=== PATIENT | female | born 1985 | race Caucasian/White ===

== ENCOUNTER → 2021-01-28 15:47 | Outpatient (POV) | payer BC, SELFPAY | PROVIDERS: Visit Provider Dermatology | DX: Z00.00 Encounter for general adult medical examination without abnormal findings (principal) ==

== ENCOUNTER → 2021-05-06 06:47 | Outpatient (CLI) | payer BC, SELFPAY ==
--- NOTE | 2021-05-06 | CA_ITS ---
APPROVED REPORT Exam: Pharmacologic Technologist: Emily Randall, Ht: 5 ft 2 in Wt: 169 lbs BSA: 1.78 m2 HR: 105 bpm BP: 126/84 mmHg Medical History Medications: HCTZ,,,,, Stress Test Details Test: LEXISCAN HR Resting HR: 92 bpm Max Heart Rate (APMHR): 182.082538 bpm Max HR Achieved: 155 bpm Target HR (85% APMHR): 154.564710 bpm % of APMHR: 85.16 Recovery HR: 98 bpm BP Resting BP: 126/84 mmHg Max BP: 141/89 mmHg Recovery BP: 138.0/85.0 mmHg ECG Resting ECG: NSR, rightward axis Clinical Exercise duration: 04:00 min Highest Stage Achieved: Stress ECG Conclusion Symptoms: Mild chest tightness, mild stomach discomfort. Arrhythmias/Ectopy: Rare PVC. ST-T Changes: No significant changes. Conclusion: Unremarkable Lexiscan stress. Myoview images reported separately. Electronically signed by : Homero Zhang MD 05/06/2021 19:23:48
--- NOTE | 2021-05-06 07:15 | NM_ITS ---
APPROVED REPORT Exam: Nuclear Stress Test Indication: Chest pain, SOB, HTN, Family history Patient Location: Outpatient Stress Tech: Emily Brambila MI Tech:Eulalia Martini, ARRT, RT (R)(N) Ht: 5 ft 2 in Wt: 200 lbs Bra Size: 38D HR: 92 bpm BP: 126/84 mmHg BSA: 1.91 m2 BMI: 36.5 History: Chest pain, SOB, HTN, Family history Procedure: Patient received a 0.4 mg of intravenous Lexiscan, resting heart rate 92 bpm, resting blood pressure 126/84 mmHg, with Lexiscan maximum heart rate achived was 155 bpm which is Less than 85 % of the maximum predicted heart rate and blood pressure was 141/89 mmHg. With Lexiscan, patient denied any complaint of chest pain. Electrocardiogram Resting electrocardiogram shows sinus rhythm, with Lexiscan there is less than 1.[address] segment depression from the baseline EKG. The EKG portion of the Lexiscan is nondiagnostic. Cardiac Stress and Resting SPECT Images: Cardiac Stress and Resting SPECT images were obtained using technetium 99m Myoview 31.1 mCi stress and 10.36 mCi at rest. Gated SPECT analysis of segmental wall motion and calculation of ejection fraction also done. Cardiac stress and rest SPECT images were uniform myocardial activity without segmental perfusion abnormality, computer derived ejection fraction is 65% with no regional wall motion abnormality, right ventricle is normal size and contractility. Conclusion: 1. The EKG portion of the Lexiscan is nondiagnostic 2. No scintigraphic evidence of reversible ischemia seen, computer derived ejection fraction is 65% with no regional wall motion abnormality, right ventricle is normal size and contractility. 3. Normal Lexiscan Myoview study. Electronically signed by : Homero Zhang MD 05/06/2021 19:26:18
--- NOTE | 2021-05-06 08:42 | HMH.ITSHM ---
Current Home Medications as stated by this patient Vero Mcdonaldty or hospital sales representative. []HCTZ
== END ==
PROVIDERS: PCP Internal Medicine Adolescent Medicine; Visit Provider Nurse Practitioner Family
DX: R07.9 Chest pain, unspecified (principal); I10 Essential (primary) hypertension; Z82.49 Family history of ischemic heart disease and other diseases of the circulatory system
CPT/HCPCS: 78452; 93017; A9502; J2785

== ENCOUNTER 2023-11-23 07:45 | Outpatient (CLI) | payer BC, SELFPAY ==
--- NOTE | 2023-11-23 | US_ITS ---
FINAL REPORT TECHNIQUE: Sonographic images of the right upper quadrant were obtained. CLINICAL HISTORY: Recurrent vomiting. COMPARISON: None. FINDINGS: The pancreas is partially obscured.The liver has an unremarkable appearance.The gallbladder appears normal without evidence of gallstones.There is no evidence of biliary ductal dilatation.The common duct measures 3 mm. There is a right renal cyst measuring 11 mm. Right kidney is otherwise unremarkable. IMPRESSION: Right renal cyst. Otherwise, unremarkable right upper quadrant ultrasound. Reviewed, Interpreted and Dictated by Dudley Rodriguez III, MD Transcribed by Marah Hsu PA-C Authenticated and [facility]
== END 2023-11-23 23:59 | disposition home or self-care (01) ==
LOC: RAD 07:46
PROVIDERS: PCP Nurse Practitioner Family; Visit Provider Nurse Practitioner Family
DX: R11.10 Vomiting, unspecified (principal); N28.1 Cyst of kidney, acquired
CPT/HCPCS: 76705

== ENCOUNTER 2023-12-08 09:01 | Outpatient (CLI) | payer BC, SELFPAY ==
--- NOTE | 2023-12-08 09:04 | CT_ITS ---
PROCEDURE INFORMATION: Exam: CT Abdomen And Pelvis With Contrast Exam date and time: 12/08/2023 9:33 AM Age: 38 years old Clinical indication: Nausea and vomiting; Abdominal pain; Other: Non specific; Additional info: Recurrent vomitting nausea abd pain TECHNIQUE: Imaging protocol: Computed tomography of the abdomen and pelvis with contrast. Radiation optimization: All CT scans at this facility use at least one of these dose optimization techniques: automated exposure control; mA and/or kV adjustment per patient size (includes targeted exams where dose is matched to clinical indication); or iterative reconstruction. Contrast material: ISOVUE 370; Contrast volume: 75 ml; Contrast route: IV; COMPARISON: US ABDOMEN LIMITED 11/23/2023 7:44 AM FINDINGS: Liver: Normal. No mass. Gallbladder and biliary ducts: Normal. No calcified stones. No ductal dilation. Pancreas: Normal. No ductal dilation. Spleen: Normal. No splenomegaly. Adrenal glands: Normal. No mass. Kidneys and ureters: 14 mm nodule right kidney 25 Hounsfield units.. There is no evidence of renal or ureteral calcifications. Stomach and bowel: Unremarkable. No obstruction. No mucosal thickening. Appendix: Normal appendix Intraperitoneal space: 18 mm simple cyst anterior to the left lobe of the liver . No follow-up imaging recommended . Vasculature: Unremarkable. No abdominal aortic aneurysm. Lymph nodes: Unremarkable. No enlarged lymph nodes. Urinary bladder: Unremarkable as visualized. Reproductive: IUD in the uterus Bones/joints: Unremarkable. No acute fracture. Soft tissues: Unremarkable. IMPRESSION: 14 mm nodule right kidney 25 Hounsfield units.Recommend MR without and with contrast or CT without and with contrast. MR is preferred for masses under 1.5 cm. No bowel obstruction. COMMENTS: Consistent with the [place] [employer]'s Incidental Findings Committee white paper (J Am Siva Radiol 2018): Any incidental renal lesion less than 1 cm or classified as too small to characterize, or any incidental cystic renal lesion characterized as simple-appearing, is likely benign. No follow-up imaging is recommended for these lesions per consensus recommendations based on imaging criteria.
[2023-12-08] MEDS: SODIUM CHLORIDE 0.9% 10ML SYR (RAD ONLY) 10 ML IV (09:41)
[2023-12-08] MEDS: IOPAMIDOL-370 (76%);100ML BOTTLE 75 ML IV (09:41)
== END 2023-12-08 23:59 | disposition home or self-care (01) ==
LOC: RAD 09:02
PROVIDERS: PCP Nurse Practitioner Family; Visit Provider Nurse Practitioner Family
DX: R11.2 Nausea with vomiting, unspecified (principal); R10.10 Upper abdominal pain, unspecified
CPT/HCPCS: 74177; Q9967

== ENCOUNTER 2023-12-24 08:19 | Outpatient (CLI) | payer BC, SELFPAY ==
--- NOTE | 2023-12-24 08:24 | MR_ITS ---
FINAL REPORT CLINICAL HISTORY: KIDNEY MASS/FAMILY HX OF RENAL CANCER COMPARISON: None FINDINGS: Multiplanar MR imaging of the abdomen was performed without and with contrast. Images of the liver reveal no evidence of mass. There is no evidence of biliary ductal dilatation. The gallbladder has an unremarkable appearance. There is a well-circumscribed anterior left upper quadrant mass, measuring 15 mm in size, which does not enhance after contrast administration, likely a cyst. In the mid right kidney there is a 13 mm mass with no evidence of contrast-enhancement, consistent in appearance with a cyst. No abnormal fluid collection is seen. No abnormal contrast enhancement is seen on the postcontrast images. IMPRESSION: 13 mm mass in the mid right kidney, without evidence of contrast-enhancement, consistent in appearance with a cyst. Well-circumscribed anterior left upper quadrant mass, 15 mm in size, which does not enhance after contrast administration, likely a cyst. Reviewed, Interpreted and Dictated by Dudley Rodriguez III, MD Transcribed by Herminia Molina Authenticated and [facility]
[2023-12-24 08:54] LABS: Blood Urea Nitrogen 14 mg/dl (7-17); Estimated Glomerular Filt Rate 79 ml/min (>60); GFR (African American) 96 ML/MIN (>60)
[2023-12-24] MEDS: GADOTERIDOL INJ 20ML SYRINGE 16 ML IV (10:16)
[2023-12-24] MEDS: SODIUM CHLORIDE 0.9% 50ML BAG 25 ML IV (10:16)
[2023-12-24] MEDS: SODIUM CHLORIDE 0.9% 10ML SYR (RAD ONLY) 10 ML IV (10:16)
== END 2023-12-24 23:59 | disposition home or self-care (01) ==
PROVIDERS: PCP Nurse Practitioner Family; Visit Provider Nurse Practitioner Family
DX: N28.89 Other specified disorders of kidney and ureter (principal); Z80.51 Family history of malignant neoplasm of kidney
CPT/HCPCS: 36415; 74183; 82565; 84520; A9576

== ENCOUNTER 2024-01-28 10:30 | Outpatient (CLI) | payer BC, SELFPAY ==
--- NOTE | 2024-01-28 10:36 | MM_ITS ---
PROCEDURE INFORMATION: Exam: MG Bilateral Screening 3D Mammography Exam date and time: 01/28/2024 10:19 AM Age: 38 years old Clinical indication: Screening examination TECHNIQUE: Imaging protocol: Bilateral Screening tomosynthesis and 2D mammography including computer-aided detection (CAD) when performed. COMPARISON: No relevant prior studies available. FINDINGS: MAMMOGRAPHY: Breast composition: The breasts are heterogeneously dense, which may obscure small masses. Mass: 0.3 cm questioned mass left breast roughly 3 o'clock middle to posterior depth. Architectural distortion: None. Calcifications: No suspicious calcifications. Asymmetric density: None. Skin thickening: None. Axillary adenopathy: None. IMPRESSION: Questioned left breast mass.Recommend left breast diagnostic mammogram including spot compression views of the left breast in the CC and MLO projections, a full 90 degree lateral view, and left breast ultrasound for further evaluation. ASSESSMENT: BI-RADS Category 0: Incomplete- Need Additional Imaging Evaluation.
== END 2024-01-28 23:59 | disposition home or self-care (01) ==
LOC: RAD 10:31
PROVIDERS: PCP Nurse Practitioner Family; Visit Provider Nurse Practitioner Family
DX: Z12.31 Encounter for screening mammogram for malignant neoplasm of breast (principal)
CPT/HCPCS: 77063; 77067

== ENCOUNTER 2024-02-24 14:08 | Outpatient (CLI) | payer BC, SELFPAY ==
--- NOTE | 2024-02-24 14:12 | MM_ITS ---
PROCEDURE INFORMATION: Exam: US Left Breast, Complete MG Left Diagnostic Breast Tomosynthesis Exam date and time: 02/24/2024 2:04 PM Age: 38 years old Clinical indication: Callback for left breast finding. TECHNIQUE: Imaging protocol: Complete ultrasound of all four quadrants of the left breast and the retroareolar regions, including ultrasound of the axilla when performed. Left Diagnostic tomosynthesis and 2D mammography including computer-aided detection (CAD) when performed. Unilateral or bilateral exam. This study was interpreted in real time. The patient received the results. COMPARISON: MG MM DIG SCREENING MAMM BI W/CAD 01/28/2024 10:19 AM FINDINGS: MAMMOGRAPHY: Breast composition: The breasts are heterogeneously dense, which may obscure small masses. Breast mammogram findings: In the lateral aspect the left breast at the posterior depth, there is an oval 1.3 cm mass best seen on the spot compression MLO view, believed to be in the approximate 3 o'clock axis the left breast. There is no distortion or suspicious calcifications. ULTRASOUND: Breast ultrasound findings: Ultrasound of the left breast is performed. In the 3 o'clock axis, 7 cm from the nipple, there are scattered simple and complicated cysts the largest measuring 0.9 x 0.7 x 0.9 cm, which are believed to correlate to the finding on the mammogram. There is no suspicious mass, shadowing, or distortion. No skin thickening. Similar scattered sub cm cysts are seen throughout the remainder of the left breast and are considered benign. There is no left axillary adenopathy. IMPRESSION: The finding in the left lateral breast at the posterior depth is believed to be related to underlying fibrocystic changes. Left breast mammogram and ultrasound in 6 months is recommended for surveillance. ASSESSMENT: BI-RADS Category 3: Probably benign.
== END 2024-02-24 23:59 | disposition home or self-care (01) ==
LOC: RAD 14:09
PROVIDERS: PCP Nurse Practitioner Family; Visit Provider Nurse Practitioner Family
DX: R92.8 Other abnormal and inconclusive findings on diagnostic imaging of breast (principal)
CPT/HCPCS: 76641; 77061; 77065; G0279

== ENCOUNTER 2024-05-22 09:54 | Outpatient (CLI) | payer BC, SELFPAY ==
--- NOTE | 2024-05-22 09:55 | US_ITS ---
FINAL REPORT CLINICAL HISTORY: RENAL CYST COMPARISON: None FINDINGS: RENAL ULTRASOUND Ultrasound images of the kidneys were obtained. Limited images of the liver parenchyma demonstrates normal echogenicity. The right kidney measures 10.9 cm in length. The left kidney measures 12.0 cm in length. Bilateral renal cysts are noted measuring 1.5 cm on the right and 2.5 cm on the left. There is no hydronephrosis. IMPRESSION: Bilateral renal cysts. Reviewed, Interpreted and Dictated by Damien Lima MD Transcribed by Meg Garza Authenticated and [facility]
== END 2024-05-22 23:59 | disposition home or self-care (01) ==
LOC: RAD 09:55
PROVIDERS: PCP Nurse Practitioner Family; Visit Provider Urology
DX: N28.1 Cyst of kidney, acquired (principal)
CPT/HCPCS: 76770

== ENCOUNTER 2024-12-13 17:09 | Outpatient (CLI) | payer BC, SELFPAY ==
--- OUTSIDE RECORDS SUMMARY | 2024-05-20 17:30 | XMS_ITS ---
Author Organization [facility] Address [address] [place] [address] Care Team Providers Care Racker Octave Board Name Role Phone Geri Aldrich Primary Care Provider [phone] GERI ALDRICH Unavailable Unavaila ble Migration, Provider Unavailable Unavailable Allergies Allergen (clinical drug ingredient) Drug/Non Drug Allergy documented on EMR Reaction Allergy Type Onset Date Status CECLOR (uncoded) Unknown Allergy Act camila LEVAQUIN (uncoded) Unknown Allergy A ctive SULFA (uncoded) Unknown Allergy Acti ve Penicillin Unknown Drug Allergy [facility] Conversion Encounter Medications Medication SIG (Take, Route, Frequency, Duration) Notes Start Date End Date Status ZEPBOUND PEN 7.5 MG/0.5 ML INJECT 7.5 MG UNDER THE SKIN ONCE WEEKLY.; Duration: 28 *Please review for potential replacement for e-prescription and drug interaction check* Active Ibuprofen 200 MG PO QD PRN *Please review and pick correct strength-formulati on from Baiduspan options. If intended option is not shown, [...] Active Encounters Encounter Location Date Provider Diagnosis [facility] [address] [facility] [address] [place] [address] 05/20/2024 Provider Migration Weight loss counseling, encounter [...] * Vero ROJAS GDOB:1985 (39 yo F)Acc No.[id number]:05/20/2024 Patient: Vero FLANNERY Provider: Alberto laureano Migration :1985 A ge:39 Y S ex:Female Date:05/20/2024 Address:[address] [place] [address] , [id number] Pcp:Geri Aldrich Subjective: * [...] Electronic signature of Jean dhillon Migration on 12/13/2024 at 05:13 PM EDT Sign off status: Pending * Provider: P rovider Migration Date: 0 05/20/2024 Generated for Al leslie/Luis Fernando/Jose on: 1 05:13 PM EDT
--- OUTSIDE RECORDS SUMMARY | 2024-12-13 17:13 | XMS_ITS | Patient Health Record ---
Author Organization [facility] Address [address] [place] [address] Care Team Providers Care Staff Combat Information Center Officer Name Role Phone Geri Aldrich Primary Care Provider GERI ALDRICH Unavailable Unavaila [facility], Provider Unavailable Unavailable Gauri Davis Unavailable [phone] Allergies Allergen (clinical drug ingredient) Drug/Non Drug Allergy documented on EMR Reaction Allergy Type Onset Date Status CECLOR (uncoded) Unknown Allergy Act camila LEVAQUIN (uncoded) Unknown Allergy A ctive SULFA (uncoded) Unknown Allergy Acti ve Penicillin Unknown Drug Allergy Active Results Component Value Reference Range Notes Rapid Covid/Flu A-B Combo (N ot yet reviewed by provider) Interpretation:Negative Performing Lab: Notes/Report: Negative Rapid Covid neg Flu A neg Flu B neg Mammogram: Screening Reviewed date:02/07/2024 09:55:32 AM Interpretation: Performing Lab: Notes/Report: Ultrasound : Breast, Left Reviewed date:02/29/2024 04:55:50 PM Interpretation: Performing Lab: Notes/Report: M-BUN & Creatinine Reviewed date:12/24/2023 09:07:58 AM Interpretation: Performing Lab: Notes/Report: BUN 14 7-17 mg/dl CREATT 0.80 0.52-1.04 mg/dl GFRAA 96 >60 ML/MIN EGFR 79 >60 ml/min MRI : Abdomen with & without Reviewed date:12/27/2023 11:04:27 AM Interpretation: Performing Lab: Notes/Report: Mammogram : Diagnostic, Left Reviewed date:03/01/2024 02:26:37 PM Interpretation: Performing Lab: Notes/Report: Mammogram : Diagnostic, Left Reviewed date:03/01/2024 02:26:37 PM Interpretation: Performing Lab: Notes/Report: Reason For Referral Reason Dr. Martins Referral Organization [facility] Referring Provider First Name Geri Referring Provider Last Name Elinor Referring Provider Speciality Family Pra ctice Referred Organization [facility] Referred Address [address] [facility], [facility] [address] [facility], [place], [place],[address], Referred Provider Specialty Urology General Notes spoke with patient isis bacon appt Referral Priority Routine Referral Appointment Date 01/03/2024 Medications Medication SIG (Take, Route, Frequency, Duration) Notes Start Date End Date Status Pepcid 20 MG 1 tab(s) orally ONCE A DAY prn Active Mirena (52 MG) 52 MG 1 EA BY INTRAUTERAL ADMINISTRATION ONCE; Duration: 1 DOSE(S) *Please review and pick correct strength-formulati on from Silverpop options. If intended option is not shown, discontinue and re-order from Quick Search* Active Triamterene-HCTZ 37.5-25 MG 1/2 tablet orally once a day; Duration: 90 days Active Immunizations Vaccine Route Administration Date Status Comme nts Tetanus Toxoid IM Intramuscular 11/15/2010 Administered Problems Problem Type SNOMED Code ICD Code Onset Dates Problem Status W/U Status Risk Notes Problem Information temporarily unavailable Dog Bite (E906.0) Active confirmed Problem Information temporarily unavailable HTN (hypertension), benign (I10) Active confirmed Problem Information temporarily unavailable BMI 33.0-33.9,adult (Z68.33) Active confirmed Problem Information temporarily unavailable BMI 32.0-32.9,adult (Z68.32) Active confirmed Problem Information temporarily unavailable Obesity (BMI 30-39.9) (E66.9) Active confirmed Problem Information temporarily unavailable BMI 37.0-37.9, adult (Z68.37) Active confirmed Problem Information temporarily unavailable BMI 35.0-35.9,adult (Z68.35) Active confirmed Problem Information temporarily unavailable Left chronic serous otitis media (H65.22) Active confirmed Problem Information temporarily unavailable Family history of early CAD (Z82.49) Active confirmed Problem Information temporarily unavailable Pure hypercholesterolemia (E78.00) Active confirmed Problem Information temporarily unavailable Chronic sore throat (J31.2) Active confirmed Problem Information temporarily unavailable Mild hyperlipidemia (E78.5) Active confirmed Problem Information temporarily unavailable Seasonal allergic rhinitis, unspecified trigger (J30.2) Active confirmed Problem Information temporarily unavailable Elevated TSH (R79.89) Active confirmed Problem Information temporarily unavailable Kidney mass (N28.89) Active confirmed Vital Signs Heart Rate 112 /min 12/13/2024 Temperature 98.8 degrees Fahrenheit 12/13/2024 Blood pressure diastolic 80 mm Hg 12/13/2024 Height 5 ft 2 in in 12/13/2024 Blood pressure systolic 118 mm Hg 12/13/2024 Weight 197.4 lbs 12/13/2024 BMI 36.1 kg/m2 12/13/2024 Encounters Encounter Location Date Provider Diagnosis [facility] [address] [place], [place] [address] 05/20/2024 Provider Migration Weight loss counseling, encounter for Z71.3 [facility] [address] [place], [place] [address] 12/13/2024 Gauri Davis Acute febrile illness R50.9 ; Stiffness of neck M43.6 and Recent foreign travel Z78.9 [facility] [address] [place], [place] [address] 01/10/2024 [facility] Visit for screening mammogram Z12.31 ; Weight loss counseling, encounter for Z71.3 ; BMI 33.0-33.9,adult Z68.33 ; HTN (hypertension), benign I10 and Renal cyst, right N28.1 [facility] [address] [place] [address] 02/10/2024 [facility] Weight loss counseling, encounter for Z71.3 and BMI 33.0-33.9,adult Z68.33 [facility] [address] [facility] [address] [place] [address] 04/03/2024 [facility] Weight loss counseling, encounter for Z71.3 ; BMI 33.0-33.9,adult Z68.33 and RUQ pain R10.11 [facility] [address] [place] [address] 07/24/2024 Geri Elinor Weight loss counseling, encounter for Z71.3 ; Obesity, Class II, BMI 35-39.9 E66.812 ; BMI 35.0-35.9,adult Z68.35 and HTN (hypertension), benign I10 [facility] [address] [place] [address] 12/14/2023 Geri Elinor Kidney mass N28.89 and Family history of renal cancer Z80.51 [facility] [address] [place] [address] 02/07/2024 Geri Elinor Abnormal mammogram of left breast R92.8 [facility] [address] [address] 02/21/2024 Geri Elinor Weight loss counseling, encounter for Z71.3 [facility] [address] [facility] [address] [place] [address] 03/22/2024 Geri Elinor Weight loss counseling, encounter for Z71.3 [facility] [address] [facility] [address] [place] [address] 03/22/2024 Geri Elinor [facility] [address] [address] 08/17/2024 Geri Elinor Weight loss counseling, encounter for Z71.3 [facility] [address] [facility] [address] [place] [address] 09/12/2024 Geri Elinor Weight loss counseling, encounter for Z71.3 [facility] [address] [address] 11/15/2024 Geri Elinor Assessments Encounter Date Diagnosis (ICD Code) Assessment Notes Treatment Notes Treatment Clinical Notes Section Notes 12/14/2023 Kidney mass (ICD-10 - N28.89) 01/10/2024 Visit for screening mammogram (ICD-10 - Z12.31) 01/10/2024 Weight loss counseling, encounter for (ICD-10 - Z71.3) Recommend trial of Zepbound instead of Wegovy, close follow-up again in 4 weeks. 02/10/2024 Weight loss counseling, encounter for (ICD-10 - Z71.3) titrate to 5mg once a week and continue that until FU in 2 months. Continue dietary/exercis e efforts 02/21/2024 Weight loss counseling, encounter for (ICD-10 - Z71.3) 03/22/2024 Weight loss counseling, encounter for (ICD-10 - Z71.3) 04/03/2024 BMI 33.0-33.9,jazz lt (ICD-10 - Z68.33) 04/03/2024 Weight loss counseling, encounter for (ICD-10 - Z71.3) titrate to 7.5mg once a week and then 10 mg once a week, FU in 2 months. Continue dietary/exercis e efforts 02/07/2024 Abnormal mammogram of left breast (ICD-10 - R92.8) 05/20/2024 Weight loss counseling, encounter for (ICD-10 - Z71.3) 07/24/2024 Weight loss counseling, encounter for (ICD-10 - Z71.3) Discussed the possibility of Wilian Clark, resuming Zepbound. Zepbound is likely to give her the most benefit if she is able to titrate to max dose. We will resume that titration. Return precautions reviewed. Importance of dietary and exercise changes reviewed as well 07/24/2024 Obesity, Class II, BMI 35-39.9 (ICD-10 - E66.812) 08/17/2024 Weight loss counseling, encounter for (ICD-10 - Z71.3) 09/12/2024 Weight loss counseling, encounter for (ICD-10 - Z71.3) 12/13/2024 Acute febrile illness (ICD-10 - R50.9) [...] on west nile PCR and IGM testing. 02/10/2024 BMI 33.0-33.9,jazz lt (ICD-10 - Z68.33) 01/10/2024 BMI 33.0-33.9,jazz lt (ICD-10 - Z68.33) 07/24/2024 BMI 35.0-35.9,jazz lt (ICD-10 - Z68.35) 04/03/2024 RUQ pain (ICD-10 - R10.11) sounds most c/w hepatic flexure syndrome, recommend simethicone, moist heat, lying on right side 12/14/2023 Family history of renal cancer (ICD-10 - Z80.51) 01/10/2024 HTN (hypertension ), benign (ICD-10 - I10) She resumed a low-dose triamterene with HCTZ, continue and monitor blood pressure 07/24/2024 HTN (hypertension ), benign (ICD-10 - I10) 01/10/2024 Renal cyst, right (ICD-10 - N28.1) 6-month ultrasound and urology follow-up are reasonable, nothing additional recommended at this time Plan Of Treatment Pending Test Test Name Order Date C-CMP 11/27/2019 C-LIPID PANEL 11/27/2019 C-FREE T4 10/20/2018 M-Complete Blood Count Auto Diff 022 M-Complete Blood Count Auto Diff 025 M-Comprehensive Metabolic Panel 12/14/19 25 M-Comprehensive Metabolic Panel 04/07/19 22 M-Lipid Panel 04/07/2021 M-Thyroid Stimulating Hormone 04/07/2021 M-West Nile Virus IgM Antiobdy 5 M-West Nile Virus PCR 12/13/2024 Rapid Covid/Flu A-B Combo 12/13/2024 Insurance Providers Payer Name Payer Address Payer Phone Subscriber Number Group Number Insured Name Patient Relationship to Insured Coverage Start Date Coverage End Date [employer] [address] [place] [address] [id number] Vero Rojas Self - patient is the insured Medical (General) History Medical History History ICD Code Hypertension and Hyperlipidemia Surgical History Surgery Date(Month/Year)
[2024-12-13 17:48] LABS: Hematocrit 36.6 % (37.0-47.0); Hemoglobin 12.1 g/dL (12.2-16.2); Immature Granulocytes % 0.4 %; Mean Corpuscular HGB Conc 33.1 g/dL (31.8-35.4); Mean Corpuscular Hemoglobin 29.7 pg (27.0-31.2); Mean Corpuscular Volume 89.7 fl (81-99); Nucleated Red Blood Cells % 0 %; Platelet Count 252 K/mm3 (142-424); Red Blood Count 4.08 M/mm3 (4.20-5.40); Red Cell Distribution Width-SD 45.1 fL; White Blood Count 8.3 K/mm3 (4.8-10.8)
[2024-12-13 18:22] LABS: Alanine Aminotransferase 33 U/L (12-78); Albumin Level 3.3 g/dl (3.5-5.0); Albumin/Globulin Ratio 0.8 (1.1-1.8); Alkaline Phosphatase 78 U/L (38-126); Anion Gap 11.0 mEq/L (5-15); Aspartate Amino Transferase 37 U/L (14-36); Bilirubin,Total 0.6 mg/dl (0.2-1.3); Blood Urea Nitrogen 8 mg/dl (7-17); Calcium 8.8 mg/dl (8.4-10.2); Carbon Dioxide 25 mmol/L (22.0-30.0); Chloride 103 mmol/L (98-107); Creatinine,Serum 0.70 mg/dl (0.52-1.04); Estimated Glomerular Filt Rate 92 ml/min (>60); GFR (African American) 112 ML/MIN (>60); Globulin 4.1 g/dL (1.3-3.2); Glucose 100 mg/dl (74-100); Potassium 4.0 mmoL/L (3.5-5.1); Sodium 135 mmol/L (136-145); Total Protein,Serum 7.4 g/dl (6.3-8.2)
== END 2024-12-13 23:59 | disposition home or self-care (01) ==
LOC: LAB 17:11
PROVIDERS: Nurse Practitioner Family; PCP Internal Medicine Adolescent Medicine; Visit Provider Internal Medicine Adolescent Medicine
DX: M43.6 Torticollis (principal); R50.9 Fever, unspecified; Z78.9 Other specified health status
CPT/HCPCS: 36415; 80053; 85025; 86665; 86788; 86789

== ENCOUNTER 2025-02-02 15:47 | Outpatient (CLI) | payer BC, SELFPAY ==
--- OUTSIDE RECORDS SUMMARY | 2024-05-20 16:30 | XMS_ITS ---
Author Organization [facility] Address [address] [place] [address] Care Team Providers Care Home Care Liaison Name Role Phone Geri Aldrich Primary Care Provider GERI ALDRICH Unavailable Unavaila ble Migration, Provider Unavailable Unavailable Allergies Allergen (clinical drug ingredient) Drug/Non Drug Allergy documented on EMR Reaction Allergy Type Onset Date Status CECLOR (uncoded) Unknown Allergy Act camila LEVAQUIN (uncoded) Unknown Allergy A ctive SULFA (uncoded) Unknown Allergy Acti ve Penicillin Unknown Drug Allergy [facility] Conversion Encounter Medications Medication SIG (Take, Route, Frequency, Duration) Notes Start Date End Date Status ZEPBOUND PEN 7.5 MG/0.5 ML INJECT 7.5 MG UNDER THE SKIN ONCE WEEKLY.; Duration: 28 *Please review for potential replacement for e-prescription and drug interaction check* Active Ibuprofen 200 MG PO QD PRN *Please review and pick correct strength-formulati on from Melintaspan options. If intended option is not shown, discontinue and re-order from Quick Search* Active Mirena (52 MG) 52 MG 1 EA BY INTRAUTERAL ADMINISTRATION ONCE; Duration: 1 DOSE(S) *Please review and pick correct strength-formulati on from Medispan options. If intended option is not shown, discontinue and re-order from Quick Search* Active Triamterene-HCTZ 37.5-25 MG 1/2 tablet orally once a day; Duration: 90 days Active Ondansetron HCl 4 MG 1 tab(s) orally every 8 hours as needed for nausea; Duration: 4 days 07/09/2022 Active Probiotic 10 Ultra Strength daily *Please review and pick correct strength-formulati on from Medispan options. If intended option is not shown, discontinue and re-order from Quick Search* Active Super B-Complex daily *Please review and pick correct strength-formulati on from Medispan options. If intended option is not shown, discontinue and re-order from Quick Search* Active Pepcid 20 MG 1 tab(s) orally ONCE A DAY prn Active [facility] daily *Please review for potential replacement for e-prescription and drug interaction check* Active Vitamin D3 daily *Please review and pick correct strength-formulati on from Medispan options. If intended option is not shown, discontinue and re-order from Quick Search* Active Iodine-Potassium Iodide *Please review and pick correct strength-formulati on from Medispan options. If intended option is not shown, discontinue and re-order from Quick Search* Active Magnesium Glycinate 100 MG 1 cap 125mg Active Encounters Encounter Location Date Provider Diagnosis [facility] [address] [facility] [address] [place] [address] 05/20/2024 Provider Migration Weight loss counseling, encounter for Z71.3 Assessments Encounter Date Diagnosis (ICD Code) Assessment Notes Treatment Notes Treatment Clinical Notes Section Notes 05/20/2024 Weight loss counseling, encounter for (ICD-10 - Z71.3) Plan Of Treatment Medication Medication Name Sig Start Date Stop Date Notes ZEPBOUND PEN 7.5 MG/0.5 ML INJECT 7.5 MG UNDER THE SKIN ONCE WEEKLY.; Duration: 28 *Please review for potential replacement for e-prescription and drug interaction check* Progress Notes * Vero ROJAS GDOB:1985 (39 yo F)Acc No.[id number]:05/20/2024 Patient: Vero FLANNERY Provider: Alberto laureano Migration :1985 A ge:39 Y S ex:Female Date:05/20/2024 Address:[address] [place] [address] , [id number] Pcp:Geri Aldrich Subjective: * Chief Complaints: * 1 . Multum To Medispan Conversion Encounter. * Medical History: * Medications: T aking Magnesium Glycinate 100 MG Capsule 1 cap , Notes to Pharmacist: 125mg, Taking Iodine-Potassium Iodide , Notes to Pharmacist: *Please review and pick correct strength-formulation from Medispan options. If intended option is not shown, discontinue and re-order from Quick Search*, Taking Vitamin D3 , Notes to Pharmacist: daily *Please review and pick correct strength-formulation from Medispan options. If intended option is not shown, discontinue and re-order from Quick Search*, Taking [facility] , Notes to Pharmacist: daily *Please review for potential replacement for e-prescription and drug interaction check*, Taking Super B-Complex , Notes to Pharmacist: daily *Please review and pick correct strength-formulation from Medispan options. If intended option is not shown, discontinue and re-order from Quick Search*, Taking Probiotic 10 Ultra Strength , Notes to Pharmacist: daily *Please review and pick correct strength-formulation from Medispan options. If intended option is not shown, discontinue and re-order from Quick Search*, Taking Pepcid 20 MG Tablet 1 tab(s) orally ONCE A DAY , Notes to Pharmacist: prn, Taking Mirena (52 MG) 52 MG DEVICE 1 EA BY INTRAUTERAL ADMINISTRATION ONCE , Notes to Pharmacist: *Please review and pick correct strength-formulation from Medispan options. If intended option is not shown, discontinue and re-order from Quick Search*, Taking Ibuprofen 200 MG PO QD PRN , Notes to Pharmacist: *Please review and pick correct strength-formulation from Medispan options. If intended option is not shown, discontinue and re-order from Quick Search*, Taking Ondansetron HCl 4 MG Tablet 1 tab(s) orally every 8 hours as needed for nausea , Taking Triamterene-HCTZ 37.5-25 MG Tablet 1/2 tablet orally once a day * Allergies: P enicillin, SULFA, LEVAQUIN, CECLOR. Objective: * Vitals: Assessment: * Assessment: 1. W eight loss counseling, encounter for - Z71.3 Plan: * Treatment: * * Electronic signature of Jean dhillon Migration on 02/02/2025 at 03:49 PM EST Sign off status: Pending * Provider: Alberto laureano Migration Date: 0 05/20/2024 Generated for Al leslie/Luis Fernando/Jose on: 1 04/05/2024 03:49 PM EST
--- OUTSIDE RECORDS SUMMARY | 2024-12-13 11:15 | XMS_ITS ---
Author Organization [facility] Address [address] [place] [address] Care Team Providers Care Stock Room Manager Name Role Phone Mariama Aldrich Primary Care Provider MARIAMA ALDRICH Unavailable Unavail haylee Davis Gauri Unavailable [phone] Allergies Allergen (clinical drug ingredient) Drug/Non Drug Allergy documented on EMR Reaction Allergy Type Onset Date Status CECLOR (uncoded) Unknown Allergy Act camila LEVAQUIN (uncoded) Unknown Allergy A ctive SULFA (uncoded) Unknown Allergy Acti ve Penicillin Unknown Drug Allergy Active Results Component Value Reference Range Notes Rapid Covid/Flu A-B Combo Reviewed date:12/13/2024 05:13:51 PM Interpretation:Negative Performing Lab: Notes/Report: Negative Rapid Covid neg Flu A neg Flu B neg REASON FOR VISIT Feels like she has flu, fever Medications Medication SIG (Take, Route, Frequency, Duration) Notes Start Date End Date Status Pepcid 20 MG 1 tab(s) orally ONCE A DAY prn Active Mirena (52 MG) 52 MG 1 EA BY INTRAUTERAL ADMINISTRATION ONCE; Duration: 1 DOSE(S) *Please review and pick correct strength-formulati on from Medispan options. If intended option is not shown, discontinue and re-order from Quick Search* Active Triamterene-HCTZ 37.5-25 MG 1/2 tablet orally once a day; Duration: 90 days Active Vital Signs Temperature 98.8 degrees Fahrenheit 12/14/19 25 Blood pressure systolic 118 mm Hg 10/29/20 25 Blood pressure diastolic 80 mm Hg 025 Heart Rate 112 /min 12/13/2024 Height 5 ft 2 in in 12/13/2024 Weight 197.4 lbs 12/13/2024 BMI 36.1 kg/m2 12/13/2024 Encounters Encounter Location Date Provider Diagnosis [facility] [address] [place] [address] 12/13/2024 Gauri Davis Acute febrile illness R50.9 ; Stiffness of neck M43.6 and Recent foreign travel Z78.9 Assessments Encounter Date Diagnosis (ICD Code) Assessment Notes Treatment Notes Treatment Clinical Notes Section Notes 12/13/2024 Acute febrile illness (ICD-10 - R50.9) In-office flu/covid panel reviewed and negative. Fevers are high but not intractable. Exam was grossly normal which is very reassuring. Another reassuring factor is that her family is not demonstrating similar symptoms. Will plan to get a CBC and CMP as well as a West Nile PCR and ab titer on her. Will personally follow these with recommendations to follow pending their findings. In the interim, patient is to continue supportive care for symptom management. PO hydration encouraged. New/worsening symptoms would prompt an immediate return to the office or ER. Plan to follow-up in 3-5 days, sooner if needed. 12/13/2024 Stiffness of neck (ICD-10 - M43.6) Subjective reports. No positive meningeal findings. 12/13/2024 Recent foreign travel (ICD-10 - Z78.9) Important consideration given recent international travel, will add on west nile PCR and IGM testing. Plan Of Treatment Treatment Notes Assessment Notes Acute febrile illness In-office flu/covi d panel reviewed and negative. Fevers are high but not intractable. Exam was grossly normal which is very reassuring. Another reassuring factor is that her family is not demonstrating similar symptoms. Will plan to get a CBC and CMP as well as a West Nile PCR and ab titer on her. Will personally follow these with recommendations to follow pending their findings. In the interim, patient is to continue supportive care for symptom management. PO hydration encouraged. New/worsening symptoms would prompt an immediate return to the office or ER. Plan to follow-up in 3-5 days, sooner if needed. Stiffness of neck Subjective reports. No positive meningeal findings. Recent foreign travel Important consider ation given recent international travel, will add on west nile PCR and IGM testing. Pending Test Test Name Order Date M-Complete Blood Count Auto Diff 025 M-Comprehensive Metabolic Panel 12/14/19 25 M-West Nile Virus IgM Antiobdy 5 M-West Nile Virus PCR 12/13/2024 Next Appt Details Follow Up: 3-5 Ds, Reason: F U on acute illness Progress Notes * Vero ROJAS GDOB:1985 (39 yo F)Acc No.[id number]:12/13/2024 Progress Notes Patient: Vero FLANNERY Provider: FRANCESCA Chowdary :1985 A ge:39 Y S ex:Female Date:12/13/2024 Address:[address] [place] [address] [address], [id number] Pcp:Mariama Aldrich Subjective: * Chief Complaints: * 1 . Feels like she has flu, fever. * HPI: g en: Patient is here for my evaluation of the following: fever, neck stiffness, myalgias, MALDONADO, mild cough, AM nausea, very easily fatigued. Of note, she just returned from a 9-[place] [employer] [place] on Wednesday. Her symptom onset was Wednesday. Her fever started out at 99 and gradually trended upward. H ighest recorded temp was 104 this morning, in the office it is 98.9 after taking 2 tylenol and an ibuprofen. H usband and son has had a cough for weeks without any fever/chills. She did get bit by an insect on the back of her left arm while in [facility] but denies any bites. No skin rashes. No GI symptoms. No sore throat. * ROS: C ARDIOLOGY: Reviewed, No Symptoms Reported: Y es. C ONSTITUTIONAL: Fever y es. F atigue yes. D ERMATOLOGY: no R simba. E NT: no S ore throat. G ASTROENTEROLOGY: Reviewed, No Symptoms Reported: Y es. H EMATOLOGY/LYMPH: no S wollen glands. M USCULOSKELETAL: See HPI Y es. N EUROLOGY: no T ingling numbness. n o S eizures. n o I nsomnia. n o M victorino loss. n o D izziness. n o G ait abnormality. ? U ROLOGY: Reviewed, No Symptoms Reported: Y es. * Medical History: H ypertension and Hyperlipidemia. * Medications: T aking Pepcid 20 MG Tablet 1 tab(s) orally ONCE A DAY , Notes to Pharmacist: prn, Taking Mirena (52 MG) 52 MG DEVICE 1 EA BY INTRAUTERAL ADMINISTRATION ONCE , Notes to Pharmacist: *Please review and pick correct strength-formulation from Inovus Solarspan options. If intended option is not shown, discontinue and re-order from Quick Search*, Taking Triamterene-HCTZ 37.5-25 MG Tablet 1/2 tablet orally once a day , Discontinued Zepbound 7.5 MG/0.5ML Solution Auto-injector 0.5 mL Subcutaneous once a week , Discontinued Scopolamine 1 MG/3DAYS Patch 72 Hour 1 patch to skin behind the ear as needed Transdermal every 3 days , Medication List reviewed and reconciled with the patient * Allergies: P enicillin, SULFA, LEVAQUIN, CECLOR. Objective: * Vitals: N urse: KJ, Pain: 7, Temp: 98.8, RR: 20, HR: 112, BP: 118/80, Ht: 5 ft 2 in, Wt: 197.4, BMI:36.1. * Examination: G eneral Examination: General P leasant and Cooperative, ill appearing but not toxic, NAD on RA,. Oral cavity: M oist membranes. Chest: n ormal shape and expansion. Heart: R egular Rate and Rhythm, no murmur, rubs or gallops. HEENT: p harynx and tonsils normal, TM's normal. Lungs: L CTAB, No wheezes, crackles or rhonchi, Good air movement,. Abdomen: S oft, NTND, BSNA, No organomegaly or peritoneal signs.. Neurologic Exam: n o meningeal signs,, no focal signs,, normal sensation, Alert and oriented x 3. Skin: w ithout acute rashes. Back: n ormal,. Psych N ormal Mood/Affect. Neck s upple, no lymphadenopathy. Assessment: * Assessment: 1. A cute febrile illness - R50.9 2 . S tiffness of neck - M43.6 3 . R ecent foreign travel - Z78.9 Plan: * Treatment: Value Reference Range R apid Covid neg * F ela A neg * F lea B neg Notes: In-office flu/covid panel reviewed and negative. Fevers are high but not intractable. Exam was grossly normal which is very reassuring. Another reassuring factor is that her family is not demonstrating similar symptoms. Will plan to get a CBC and CMP as well as a West Nile PCR and ab titer on her. Will personally follow these with recommendations to follow pending their findings. In the interim, patient is to continue supportive care for symptom management. PO hydration encouraged. New/worsening symptoms would prompt an immediate return to the office or ER. Plan to follow-up in 3-5 days, sooner if needed. ?? 2.?Stiffness of neck?LAB: M-Complete Blood Count Auto Diff ?LAB: M-Comprehensive Metabolic Panel ?LAB: M-West Nile Virus IgM Antiobdy ?LAB: M-West Nile Virus PCR Notes: Subjective reports. No positive meningeal findings. ??3.?Recent foreign travel?LAB: M-Complete Blood Count Auto Diff ?LAB: M-Comprehensive Metabolic Panel ?LAB: M-West Nile Virus IgM Antiobdy ?LAB: M-West Nile Virus PCR ?LAB: Rapid Covid/Flu A-B Combo (Collection Date & Time - 12/13/2024)? Negative* Value Reference Range R apid Covid neg * F lea A neg * F lea B neg Notes: Important consideration given recent international travel, will add on west nile PCR and IGMtesting. ?? * Procedure Codes: 8 7636 RAPID COVID/FLU A & B COMBO, Modifiers: QW * Follow Up: 3 -5 Ds (Reason: FU on acute illness) * * Sign off status: Completed true * Provider: FRANCESCA Chowdary Date: 1 Generated for Al leslie/Luis Fernando/Stephanieitting on: 04/05/2024 03:48 PM EST History and Physical Notes * HPI (History of Present Illness) Category Sub-Category Detail Notes Category Not es gen Patient is here for my evaluation of the following: fever, neck stiffness, myalgias, MALDONADO, mild cough, AM nausea, very easily fatigued. Of note, she just [place] [employer] [place] on [place]. Her symptom onset was Wednesday. Her fever started out at 99 and gradually trended upward. Highest recorded temp was 104 this morning, in the office it is 98.9 after taking 2 tylenol and an ibuprofen. and son has had a cough for weeks without any fever/chills. She did get bit by an insect on the back of her left arm while in [facility] but denies any bites. No skin rashes. No GI symptoms. No sore throat. Examination Category Sub-Category Detail Notes Category Not es General Examination HEENT: pharynx and tonsils normal, TM's normal Neck supple, no lymphaden opathy Heart: Regular Rate and Rhy thm, no murmur, rubs or gallops Lungs: LCTAB, No wheezes, c rackles or rhonchi, Good air movement, Abdomen: Soft, NTND, BSNA, No organomegaly or peritoneal signs. Skin: without acute rashes Neurologic Exam: no meningeal signs,, no focal signs,, normal sensation, Alert and oriented x 3 Oral cavity: Moist membranes Back: normal, Chest: normal shape and exp ansion General Pleasant and Coopera tive, ill appearing but not toxic, NAD on RA, Psych Normal Mood/Affect
--- OUTSIDE RECORDS SUMMARY | 2024-12-14 06:58 | XMS_ITS ---
Author Organization [facility] Address [address] [place] [address] Care Team Providers Care Senior Ios Developer Name Role Phone Elinor Geri Primary Care Provider GERI BETANCUR Unavailable Unavaila ble Encounters Encounter Location Date Provider Diagnosis [facility] [address] [place], [place] [address] 12/14/2024 Geri Elinor Acute febrile illness R50.9 and Abnormal monocyte count D72.9 Assessments Encounter Date Diagnosis (ICD Code) Assessment Notes Treatment Notes Treatment Clinical Notes Section Notes 12/14/2024 Acute febrile illness (ICD-10 - R50.9) 12/14/2024 Abnormal monocyte count (ICD-10 - D72.9) Plan Of Treatment Pending Test Test Name Order Date M-EBV Acute Infection Antibodies 025 M-EBV Ab VCA, IgM 12/14/2024 Progress Notes * Vero ROJAS GDOB:1985 (39 yo F)Acc No.[id number]:12/14/2024 Patient: Nyla REEDER Vero G :1985 A ge:39 Y S ex:Female Address:[address] [place], [place] [address], [place] [address] Subjective: * Chief Complaints: * * Medical History: * Surgical History: * Hospitalization/Major Diagno stic Procedure: * Medications: Objective: * Vitals: * Physical Examination: Assessment: * Assessment: 1. A cute febrile illness - R50.9 (Primary) 2 . A bnormal monocyte count - D72.9 Plan: * Treatment: 2. A bnormal monocyte count L AB: M-EBV Acute Infection Antibodies L AB: M-EBV Ab VCA, IgM * Procedure Codes: * true * Date: Generated for Al leslie/Luis Fernando/eTsalvatoresmitting on: 04/05/2024 03:49 PM EST
--- OUTSIDE RECORDS SUMMARY | 2025-02-02 15:49 | XMS_ITS | Patient Health Record ---
Author Organization [facility] Address [address] [place] [address] Care Team Providers Care Personnel Administrator Name Role Phone Geri Aldrich Primary Care Provider GERI ALDRICH Unavailable Unavaila ble [facility], Provider Unavailable Unavailable Gauri Davis Unavailable [phone] Allergies Allergen (clinical drug ingredient) Drug/Non Drug [...] neg Flu A neg Flu B neg M-EBV Ab VCA, IgM Reviewed date:12/18/2024 02:43:03 PM Interpretation: Performing Lab: Notes/Report: PLEASE FAX RESULTS TO [phone] EBVVCAIGM <36.0 0.0-35.9 U/mL Negative <36.0 Equivocal 36.0 - 43.9 Positive >43.9 Performed at: [address] [id number] [employer]al[employer] Constructor: Avinash Pan PhD, Phone: [phone] Mammogram : Diagnostic, Left Reviewed date:03/01/2024 02:26:37 PM Interpretation: Performing Lab: Notes/Report: Mammogram : Diagnostic, Left Reviewed date:03/01/2024 02:26:37 PM Interpretation: Performing Lab: Notes/Report: Ultrasound : Breast, Left Reviewed date:02/29/2024 04:55:50 PM Interpretation: Performing Lab: Notes/Report: Reason For Referral No Information Medications Medication SIG (Take, Route, Frequency, Duration) Notes Start Date End Date Status Pepcid 20 MG 1 tab(s) orally ONCE A DAY prn Active Mirena (52 MG) 52 MG 1 EA BY INTRAUTERAL ADMINISTRATION ONCE; Duration: 1 DOSE(S) *Please review and pick correct strength-formulati on from [employer] options. If intended option is not shown, discontinue and re-order from Quick Search* Active Triamterene-HCTZ 37.5-25 MG 1/2 tablet orally once a day; Duration: 90 days Active Immunizations Vaccine Route Administration Date Status Comme nts Tetanus Toxoid IM Intramuscular 11/15/2010 Administered Problems Problem Type SNOMED Code ICD Code Onset Dates Problem Status W/U Status Risk Notes Problem Dog bite (461237127) Dog Bite (E906.0) Active c onfirmed Problem Essential hypertension (76082488) HTN (hypertension), benign (I10) Active confirmed Problem Obese class I (891642489351563) BMI 33.0-33.9,adult (Z68.33) Active confirmed Problem BMI 30+ - obesity (816369754) BMI 32.0-32.9,adult (Z68.32) Active confirmed Problem Obesity (822802287) Obesity (BMI 30-39.9) (E66.9) Active confirmed Problem Obese class II (444709720589249) BMI 37.0-37.9, adult (Z68.37) Active confirmed Problem Obese class II (737252492157376) BMI 35.0-35.9,adult (Z68.35) Active confirmed Problem Chronic serous otiti s media (04485682) Left chronic serous otitis media (H65.22) Active confirmed Problem Family history of coronary artery disease (757137638) Family history of early CAD (Z82.49) Active confirmed Problem Pure hypercholesterolemia (164202962) Pure hypercholesterolemia (E78.00) Active confirmed Problem Chronic sore throat (377424932) Chronic sore throat (J31.2) Active confirmed Problem Hyperlipidemia (44130088) Mild hyperlipidemia (E78.5) Active confirmed Problem Seasonal allergic rhinitis (646434125) Seasonal allergic rhinitis, unspecified trigger (J30.2) Active confirmed Problem Blood chemistry abnormal (402062130) Elevated TSH (R79.89) Active confirmed Problem Kidney mass (588180646) Kidney mass (N28.89) Active confirmed Vital Signs Heart Rate 112 /min 12/13/2024 Temperature 98.8 degrees Fahrenheit 12/13/2024 Blood pressure diastolic 80 mm Hg 12/13/2024 Height 5 ft 2 in in 12/13/2024 Blood pressure systolic 118 mm Hg 12/13/2024 Weight 197.4 lbs 12/13/2024 BMI 36.1 kg/m2 12/13/2024 Encounters Encounter Location Date Provider Diagnosis [facility] [address] [place] [address] 05/20/2024 Provider Migration Weight loss counseling, encounter for Z71.3 [facility] [address] [place] [address] 02/10/2024 Geri Aldrich Weight loss counseling, encounter for Z71.3 and BMI 33.0-33.9,adult Z68.33 [facility] [address] [place] [address] 04/03/2024 Geri Elinor Weight loss counseling, encounter for Z71.3 ; BMI 33.0-33.9,adult Z68.33 and RUQ pain R10.11 [facility] [address] [place] [address] 07/24/2024 Geri Elinor Weight loss counseling, encounter for Z71.3 ; Obesity, Class II, BMI 35-39.9 E66.812 ; BMI 35.0-35.9,adult Z68.35 and HTN (hypertension), benign I10 [facility] [address] [place] [address] 12/13/2024 Gauri Davis Acute febrile illness R50.9 ; Stiffness of neck M43.6 and Recent foreign travel Z78.9 [facility] [address] [place] [address] 02/07/2024 Geri Elinor Abnormal mammogram of left breast R92.8 [facility] [address] [address] 02/21/2024 Geri Elinor Weight loss counseling, encounter for Z71.3 [facility] [address] [place] [address] 03/22/2024 Geri Elinor Weight loss counseling, encounter for Z71.3 [facility] [address] [facility] [address] [place] [address] 03/22/2024 Geri Elinor [facility] [address] [address] 08/17/2024 Geri Elinor Weight loss counseling, encounter for Z71.3 [facility] [address] [facility] [address] [place] [address] 09/12/2024 Geri Elinor Weight loss counseling, encounter for Z71.3 [facility] [address] [address] 11/15/2024 Geri Elinor [facility] [address] [facility] [address] [place] [address] 12/14/2024 Geri Elinor Acute febrile illness R50.9 and Abnormal monocyte count D72.9 Assessments Encounter Date Diagnosis (ICD Code) Assessment Notes Treatment Notes Treatment Clinical Notes Section Notes 02/10/2024 Weight loss counseling, encounter for (ICD-10 [...] follow-up in 3-5 days, sooner if needed. 12/14/2024 Acute febrile illness (ICD-10 - R50.9) 12/14/2024 Abnormal monocyte count (ICD-10 - D72.9) 07/24/2024 BMI 35.0-35.9,jazz lt (ICD-10 - Z68.35) 12/13/2024 Stiffness of neck (ICD-10 - M43.6) Subjective reports. No positive meningeal findings. 12/13/2024 Recent foreign travel (ICD-10 - Z78.9) Important consideration given recent international travel, will add on [place] PCR and IGM testing. 02/10/2024 BMI 33.0-33.9,jazz lt (ICD-10 - Z68.33) 04/03/2024 RUQ pain (ICD-10 - R10.11) sounds most c/w hepatic flexure syndrome, recommend simethicone, moist heat, lying on right side 07/24/2024 HTN (hypertension ), benign (ICD-10 - I10) Plan Of Treatment Pending Test Test Name Order Date C-CMP 11/27/2019 C-LIPID PANEL 11/27/2019 C-FREE T4 10/20/2018 M-Complete Blood Count Auto Diff 022 M-Complete Blood Count Auto Diff 025 M-Comprehensive Metabolic Panel 12/14/19 25 M-Comprehensive Metabolic Panel 04/07/19 22 M-Lipid Panel 04/07/2021 M-Thyroid Stimulating Hormone 04/07/2021 M-West Nile Virus IgM Antiobdy 5 M-West Nile Virus PCR 12/13/2024 M-EBV Acute Infection Antibodies 025 M-EBV Ab VCA, IgM 12/14/2024 Insurance Providers Payer Name Payer Address Payer Phone Subscriber Number Group Number Insured Name Patient Relationship to Insured Coverage Start Date Coverage End Date [facility] [address] [place] [address] [id number] Vero Rojas Self - patient is the insured Medical (General) History Medical History History ICD Code Hypertension and Hyperlipidemia Surgical History Surgery Date(Month/Year)
--- NOTE | 2025-02-02 16:00 | US_ITS ---
FINAL REPORT TECHNIQUE: Ultrasound images of the kidneys and bladder were obtained. CLINICAL HISTORY: f/u renal cyst FINDINGS: The right kidney measures 11 cm in length. It is normal in echogenicity. There is no hydronephrosis. There is a 14 mm simple cyst in the central kidney. The left kidney measures 11 cm in length. It is normal in echogenicity. There is no hydronephrosis. The urinary bladder is unremarkable. IMPRESSION: No hydronephrosis. 14 mm right renal cyst. Reviewed, Interpreted and Dictated by Eric Higginbotham MD Transcribed by Carline Gil Authenticated and [facility]
== END 2025-02-02 23:59 | disposition home or self-care (01) ==
LOC: RAD 15:47
PROVIDERS: PCP Internal Medicine Adolescent Medicine; Visit Provider Urology
DX: N28.1 Cyst of kidney, acquired (principal)
CPT/HCPCS: 76770